=== PATIENT | female | born 1965 | race Caucasian/White ===

== ENCOUNTER 2019-01-14 17:38 | Emergency (ER) | payer SELFPAY ==
[2019-01-14] MEDS ORDERED: Nitroglycerin 0.4 MG TAB 1 EACH ONE (17:59)
[2019-01-14] MEDS ORDERED: Aspirin Chewable 81 MG TAB ONE (17:59)
[2019-01-14 18:00] LABS: #Basophils 0.1 thou/uL (0.0-0.2); #Monocytes 0.4 thou/uL (0.11-0.59); #Neutrophils 9.3 thou/uL (1.40-6.50); %Basophils 0.6 % (0.0-1.0); %Eosinophils 0.4 % (0.0-10.0); %Lymphocytes 23.3 % (21.0-51.0); %Monocytes 3.2 % (0.0-10.0); %Neutrophils 72.5 % (42.0-75.0); Hemoglobin 13.1 g/dL (12.0-16.0); Mean Corpuscular HGB CONC 33.1 g/dL (32.0-36.0); Mean Corpuscular Volume 90.5 fL (78.0-98.0); Mean Platelet Volume 11.4 fL (7.4-10.4); Platelet Count 188 thou/uL (130-400); RBC Distribution Width 12.3 % (11.5-14.5); Red Blood Cell (RBC) Count 4.38 mill/uL (4.20-5.40); White Blood Cell (WBC) Count 12.8 thou/uL (4.8-10.8)
[2019-01-14 18:20] LABS: ALT (SGPT) 16 U/L (8-55); AST (SGOT) 29 U/L (5-34); Albumin 4.3 g/dL (3.5-5.0); Alkaline Phosphatase 134 U/L (40-150); Anion Gap 18 mmol/L (10-20); BUN (Urea Nitrogen) 8 mg/dL (9.8-20.1); Bilirubin, Total 0.3 mg/dL (0.2-1.2); Calc. Creatinine Clearance 0 mL/min (70-130); Carbon Dioxide 22 mmol/L (22-29); Chloride 106 mmol/L (98-107); Estimated GFR-MDRD 72; Globulin 3.1 g/dL (2.4-3.5); Glucose 121 mg/dL (70-105); Potassium 3.4 mmol/L (3.5-5.1); Protein, Total 7.4 g/dL (6.0-8.3); Sodium 143 mmol/L (136-145)
[2019-01-14] MEDS ORDERED: Enoxaparin Sodium 40 MG/0.4 ML SYRINGE ONE (18:30)
[2019-01-14] MEDS ORDERED: Enoxaparin Sodium 30 MG/0.3 ML SYRINGE ONE (18:30)
[2019-01-14] MEDS ORDERED: Morphine 4 MG/ML VIAL ONE (18:30)
[2019-01-14 18:42] LABS: CKMB 5.1 ng/mL (0-6.6)
[2019-01-14 18:59] LABS: Prothrombin Time 13.5 SEC (12.0-14.7)
[2019-01-14 19:00] LABS: PTT 32.6 SEC (22.9-36.1)
--- NOTE | 2019-01-14 19:07 | RAD ---
PORTABLE CHEST: HISTORY: Chest pain. Cough. Congestion. COMPARISON: 01/30/2014 FINDINGS: Heart size and mediastinum are within normal limits. Lungs are clear of infiltrates. Calcified gran ulomas are noted. IMPRESSION: No active intrathoracic disease. POS: GEO
== END 2019-01-14 19:12 | disposition short-term general hospital (02) ==
LOC: MADERS 17:38
DX: I21.4 Non-ST elevation (NSTEMI) myocardial infarction (principal); J44.9 Chronic obstructive pulmonary disease, unspecified; F17.210 Nicotine dependence, cigarettes, uncomplicated; Z71.6 Tobacco abuse counseling; Z79.51 Long term (current) use of inhaled steroids
CPT/HCPCS: 71045; 80053; 82553; 83880; 84484; 85025; 85610; 85730; 93005; 96372; 96374; 99406; J1650; J2270

== ENCOUNTER 2019-04-24 21:12 | Emergency (ER) | payer OTHER ==
[2019-04-24] MEDS ORDERED: Nitroglycerin 0.4 MG TAB 1 EACH ONE ×2 (21:33→22:11)
[2019-04-24] MEDS ORDERED: Aspirin Chewable 81 MG TAB ONE (21:33)
[2019-04-24 21:40] LABS: #Basophils 0.2 thou/uL (0.0-0.2); #Eosinphils 0.1 thou/uL (0.0-0.7); #Lymphocytes 3.3 thou/uL (1.20-3.40); #Monocytes 0.8 thou/uL (0.11-0.59); #Neutrophils 6.3 thou/uL (1.40-6.50); %Basophils 1.7 % (0.0-1.0); %Eosinophils 1.4 % (0.0-10.0); %Lymphocytes 30.8 % (21.0-51.0); %Monocytes 7.2 % (0.0-10.0); %Neutrophils 58.9 % (42.0-75.0); Mean Corpuscular HGB CONC 33.3 g/dL (32.0-36.0); Mean Corpuscular Hemoglobin 29.8 pg (27.0-31.0); Mean Corpuscular Volume 89.4 fL (78.0-98.0); Mean Platelet Volume 11.6 fL (7.4-10.4); Platelet Count 190 thou/uL (130-400); RBC Distribution Width 12.4 % (11.5-14.5); Red Blood Cell (RBC) Count 4.37 mill/uL (4.20-5.40); White Blood Cell (WBC) Count 10.6 thou/uL (4.8-10.8)
[2019-04-24 21:42] LABS: INR-International Normal Ratio 1.1; PTT 29.7 SEC (22.9-36.1)
--- NOTE | 2019-04-24 21:46 | RAD ---
Chest one view HISTORY: Chest pain. COMPARISON: 01/14/2019. FINDINGS: Cardiac silhouette is magnified by projection. Pulmonary vascular is unremarkable. Mediasti num is midline with aortic calcification. Calcified granulomata within the right lung are stable. No lobar consolidation or evidence of pneumothorax. IMPRESSION: Atherosclerosis. No active cardiopulmonary abnormalities are otherwise demonstrated.
[2019-04-24 21:54] LABS: ALT (SGPT) 10 U/L (8-55); AST (SGOT) 19 U/L (5-34); Albumin 4.3 g/dL (3.5-5.0); Alkaline Phosphatase 115 U/L (40-150); Anion Gap 16 mmol/L (10-20); BUN (Urea Nitrogen) 12 mg/dL (9.8-20.1); Bilirubin, Total 0.3 mg/dL (0.2-1.2); Calc. Creatinine Clearance 0 mL/min (70-130); Calcium 9.3 mg/dL (7.8-10.44); Carbon Dioxide 24 mmol/L (22-29); Chloride 106 mmol/L (98-107); Estimated GFR-MDRD 64; Globulin 3.5 g/dL (2.4-3.5); Glucose 69 mg/dL (70-105); Potassium 3.8 mmol/L (3.5-5.1); Protein, Total 7.8 g/dL (6.0-8.3); Sodium 142 mmol/L (136-145)
== END 2019-04-24 22:23 | disposition short-term general hospital (02) ==
LOC: MADERS 21:12
DX: R07.9 Chest pain, unspecified (principal); J44.9 Chronic obstructive pulmonary disease, unspecified; I25.10 Atherosclerotic heart disease of native coronary artery without angina pectoris; F17.210 Nicotine dependence, cigarettes, uncomplicated; Z79.01 Long term (current) use of anticoagulants; Z79.82 Long term (current) use of aspirin; Z79.899 Other long term (current) drug therapy
CPT/HCPCS: 71045; 80053; 84484; 85025; 85610; 85730

== ENCOUNTER 2024-02-01 12:52 | Emergency (ER) | payer OTHER, SELFPAY ==
[2024-02-01] MEDS ORDERED: predniSONE 20 MG TAB ONE (13:18)
== END 2024-02-01 13:33 | disposition home or self-care (01) ==
LOC: MADERS 12:52
DX: J45.901 Unspecified asthma with (acute) exacerbation (principal); R03.0 Elevated blood-pressure reading, without diagnosis of hypertension; I25.10 Atherosclerotic heart disease of native coronary artery without angina pectoris; J44.9 Chronic obstructive pulmonary disease, unspecified; F17.210 Nicotine dependence, cigarettes, uncomplicated
CPT/HCPCS: 93005; J7512

== ENCOUNTER 2024-02-12 15:41 | Emergency (ER) | payer OTHER ==
[2024-02-12] MEDS ORDERED: Ipratropium/Albuterol 3 ML NEB ONE (16:59)
[2024-02-12] MEDS ORDERED: Orphenadrine Citrate 60 MG/2 ML VIAL ONE (17:00)
[2024-02-12] MEDS ORDERED: predniSONE 20 MG TAB ONE (17:00)
[2024-02-12] MEDS ORDERED: Ketorolac Tromethamine 30 MG (1 mL) VIAL ONE (17:00)
[2024-02-12] MEDS ORDERED: predniSONE 10 MG TAB ONE (17:00)
[2024-02-12 17:08] LABS: ALT (SGPT) 24 U/L (8-55); AST (SGOT) 23 U/L (5-34); Albumin 4.4 g/dL (3.5-5.0); Alkaline Phosphatase 117 U/L (40-110); Anion Gap 15 mmol/L (10-20); BUN (Urea Nitrogen) 8 mg/dL (9.8-20.1); Bilirubin, Total 0.8 mg/dL (0.2-1.2); Calc. Creatinine Clearance 0 mL/min (70-130); Calcium 9.6 mg/dL (7.8-10.44); Carbon Dioxide 22 mmol/L (22-29); Chloride 103 mmol/L (98-107); Estimated GFR 85; Globulin 3.5 g/dL (2.4-3.5); Glucose 91 mg/dL (70-105); Lipase 31 U/L (8-78); Potassium 3.8 mmol/L (3.5-5.1); Protein, Total 7.9 g/dL (6.0-8.3); Sodium 136 mmol/L (136-145)
[2024-02-12 17:18] LABS: Hematocrit 49.3 % (36.0-47.0); Mean Corpuscular HGB CONC 30.4 g/dL (32.0-36.0); Mean Corpuscular Hemoglobin 29.3 pg (27.0-31.0); Mean Corpuscular Volume 96.6 fl (78.0-98.0); Mean Platelet Volume 12.5 fL (7.4-10.4); Platelet Count 159 10x3/uL (130-400); RBC Distribution Width 11.9 % (11.5-14.5); White Blood Cell (WBC) Count 17.4 10x3/uL (4.8-10.8)
[2024-02-12 17:19] LABS: Eosinophils 1 % (0-10); Lymphocytes 10 % (21-51); MDiff Complete? YES; Manual Diff?? YES; Monocytes 5 % (0-10); Neutrophil 70 % (42-75); Reactive Lymphocytes 14 % (0-10)
[2024-02-12 17:20] LABS: Large Platelets SLIGHT (None Seen); Platelet Adequacy Comment Appears Adequate; RBC Morph Comment Within Normal Limits
[2024-02-12 18:20] LABS: SARS-CoV-2 E Target Negative; SARS-CoV-2 N2 Target Negative; SARS-CoV-2 NAA Rapid Test Not Detected (NotDetected); SARS-CoV-2 RdRP gene Negative
== END 2024-02-12 18:23 | disposition home or self-care (01) ==
LOC: MADERS 15:41
DX: M94.0 Chondrocostal junction syndrome [Tietze] (principal); M79.10 Myalgia, unspecified site; F17.210 Nicotine dependence, cigarettes, uncomplicated
CPT/HCPCS: 36415; 71250; 80053; 83690; 85025; 85379; 93005; 96372; J1885; J2360; J7512; J7620; U0002

== ENCOUNTER 2025-06-09 23:02 | Emergency (ER) | payer OTHER, SELFPAY ==
[2025-06-10] MEDS ORDERED: Ketorolac Tromethamine 30 MG (1 mL) VIAL ONE (01:09)
[2025-06-10] MEDS ORDERED: HYDROcodone/Acetaminophen 5/325 mg Tablet ONE (01:09)
== END 2025-06-10 01:30 | disposition home or self-care (01) ==
LOC: MADERS 23:02
DX: S52.501A Unspecified fracture of the lower end of right radius, initial encounter for closed fracture (principal); I10 Essential (primary) hypertension; J44.9 Chronic obstructive pulmonary disease, unspecified; I25.2 Old myocardial infarction; I25.10 Atherosclerotic heart disease of native coronary artery without angina pectoris; F17.210 Nicotine dependence, cigarettes, uncomplicated; Z95.5 Presence of coronary angioplasty implant and graft; Z79.82 Long term (current) use of aspirin; W03.XXXA Other fall on same level due to collision with another person, initial encounter; Y93.51 Activity, roller skating (inline) and skateboarding
CPT/HCPCS: 29125; 96372; 99283; J1885

== ENCOUNTER 2025-07-24 12:14 | Emergency (ER) | payer SELFPAY ==
[2025-07-24] MEDS ORDERED: Ipratropium Bromide 2.5 ml Neb ONE (12:31)
[2025-07-24] MEDS ORDERED: Azithromycin 500 MG VIAL ONE (12:32)
[2025-07-24] MEDS ORDERED: Orphenadrine Citrate 60 MG/2 ML VIAL ONE (13:37)
== END 2025-07-24 13:47 | disposition home or self-care (01) ==
LOC: MADERS 12:14
DX: J44.1 Chronic obstructive pulmonary disease with (acute) exacerbation (principal); R91.1 Solitary pulmonary nodule; I25.2 Old myocardial infarction; F17.210 Nicotine dependence, cigarettes, uncomplicated; J45.909 Unspecified asthma, uncomplicated; Z79.82 Long term (current) use of aspirin; Z79.51 Long term (current) use of inhaled steroids
CPT/HCPCS: 71046; 96365; 96375; J0456; J2360; J2919; J7050; J7612; J7644